=== PATIENT | female | born 1995 | race Caucasian/White ===

== ENCOUNTER 2016-06-04 14:38 | Emergency (ER) | payer OTHER ==
[2016-06-04 14:49] VITALS: BP 99/69
--- NOTE | 2016-06-04 15:08 | ED ---
Throat Pain/Nasal Congestion - HPI Summary HPI Summary: 21yo c/o swollen lymph nodes in her neck, sore throat, headache that started yesterday. Symptoms got worse about 3 hours ago with increased swelling. Change in voice, like a hot potato voice. No fever, but feels chilled. Sister with similar symptoms. Increased fatigue. No abdominal pain but some GI upset. No current vomiting or diarrhea. Taking fluids in without difficulty. Recently diagnosed with Fe def anemia and started on iron. LMP May 21 has IUD and no intercourse. Vaccines are up to date. - History of Current Complaint Chief Complaint: EDThroatPain - Allergies/Home Medications Allergies/Adverse Reactions: Allergies Allergy/AdvReac Type Severity Reaction Status Date / Time Hydrocodone [From Vicodin] Allergy GI Upset Verified 07/04/15 03:58 PMH/Surg Hx/FS Hx/Imm Hx Endocrine/Hematology History: Reports: Hx Anemia Denies: Hx Diabetes, Hx Thyroid Disease Cardiovascular History: Denies: Hx Hypertension Respiratory History: Denies: Hx Asthma, Hx Chronic Obstructive Pulmonary Disease (COPD) GI History: Denies: Hx Ulcer Psychiatric History: Reports: Hx Anxiety, Hx Depression, Hx Post Traumatic Stress Disorder, Hx Community Mental Health Tx Denies: Hx Attention Deficit Hyperactivity Disorder, Hx Eating Disorder, Hx Panic Disorder, Hx Inpatient Treatment, Hx Schizophrenia, Hx Bipolar Disorder, Hx Suicide Attempt, Hx of Violent Episodes Against Others, Hx Substance Abuse, Other Psychiatric Issues/Disorders Infectious Disease History: No Infectious Disease History: Denies: Hx Hepatitis, Hx Human Immunodeficiency Virus (HIV), Traveled Outside the [place] in Last 30 Days - Family History Known Family History: Positive: Diabetes - mother, Other - hypothyroidism mother , depression in family - Social History Occupation: Student - [employer] Lives: Alone - with a room mate Alcohol Use: Rare Hx Substance Use: Yes Substance Use Type: Reports: Marijuana Hx Tobacco Use: No Smoking Status (MU): Never Smoked Tobacco Review of Systems Positive: Fatigue Positive: Sore Throat Positive: Headache All Other Systems Reviewed And Are Negative: Yes Physical Exam - Summary Physical Exam Summary: GENERAL: Well appearing, No acute distress, well nourished. Slightly muffled voice but improves with clearing. HEENT: Head atraumatic/normocephalic, EOMI/YONI, conjunctiva clear, TMs appear without erythema/bulging, Nose appears without congestion or drainage, Throat uvula midline without exudates or tonsillar edema, but does have some erythema. No trismus. Tongue appears normal. Parotids non tender. NECK: Supple with normal range of motion during conversation. +anterior cervical lymphadenopathy. CARDIAC: RRR without murmur, rub or gallop LUNGS: Clear to auscultation without wheezing, rales or rhonchi. Normal respiratory effort. Breath sounds are symmetrical and equal. ABDOMEN: Abdomen is soft and non-tender. No organomegaly. MUSCULOSKELETAL: Moves all extremities well. There is no peripheral edema. SKIN: Warm and dry, skin color reflects adequate perfusion. NEUROLOGICAL: Patient is alert and appropriate. Cranial nerves are grossly intact. PSYCHIATRIC: Appropriate affect. Vital Signs On Initial Exam: Initial Vitals Temp Pulse Resp BP Pulse Ox 98.8 F 62 15 99/69 100 06/04/16 14:41 06/04/16 14:41 06/04/16 14:41 06/04/16 14:41 06/04/16 14:41 Diagnostics - Vital Signs Vital Signs Temp Pulse Resp BP Pulse Ox 06/04/16 14:41 98.8 F 62 15 99/69 100 - Laboratory Lab Statement: Any lab studies that have been ordered have been reviewed, and results considered in the medical decision making process. EENT Course/Dx - Course Assessment/Plan: 21yo female presents with sore throat, change in voice, headache that started yesterday. She had exposure to her sick sister whose symptoms resolved without treatment. She has not tried any medication. She is immunized. Rapid strep was negative. Pending labs including mono spot. Signed out to Tanya at 1630 pending labs. - Diagnoses Provider Diagnoses: Sore throat - Provider Notifications Discussed Care of Patient with: Tanya Discharge - Discharge Plan Condition: Stable Disposition: OTHER Discharge Disposition Comment: signed out to Faustino Vera [id number]
[2016-06-04] MEDS ORDERED: Ibuprofen TAB* 600 MG PO ONE (15:24)
--- NOTE | 2016-06-04 16:42 | PN ---
Progress Note - Progress Note Note: 21 F presents with sore throat. Signed out by Yazmin LEON pending labs. Revaluation at 16:56 patient pain is improved with ibuprofen, did not notice a hot potato voice at time and handle secretions well, labs are currently being drawn Discussed results with patient, sore throat is currently a 2/10 with ibuprofen, has slight WBC count which is expected, able to eat and drink okay, explained warning signs to look for to return such as inability to swallow, increase swelling of neck, difficult speaking or handle secretions, or inability to open mouth all the way to return immediately Will treat symptomatically, patient agrees with plan Diagnosis: sore throat Condition: good Disposition: home
[2016-06-04 17:57] LABS: Hematocrit 39 % (35-47); Hemoglobin 11.9 g/dl (12.0-16.0); Mean Corpuscular HGB Conc 31 g/dl (31-36); Mean Corpuscular Hemoglobin 22 pg (27-31); Mean Platelet Volume 7 um3 (7.4-10.4); Red Blood Count 5.37 10^6/ul (4.0-5.4); Red Cell Distribution Width 17 % (10.5-15); White Blood Count 12.9 10^3/ul (3.5-10.8)
[2016-06-04 18:05] LABS: Comments Flag Yes
[2016-06-04 18:06] LABS: Mean Corpuscular Volume 72 fL (80-97)
[2016-06-04 18:10] LABS: Albumin 4.8 g/dL (3.2-5.2); BUN/Creatinine Ratio 8.8 (8-20); Calcium 9.6 mg/dL (8.6-10.3); EGFR African American 140.5 (>60); EGFR Non-African American 109.2 (>60); Potassium 3.5 mmol/L (3.5-5.0); Total Bilirubin 0.3 mg/dL (0.2-1.0); Total Protein 7.8 g/dL (6.4-8.9)
[2016-06-04 18:22] LABS: Manual Entry Verification MD; Mono Internal Control QC Line Present
== END 2016-06-04 19:13 | disposition home or self-care (01) ==
LOC: ED 14:38
DX: J02.9 Acute pharyngitis, unspecified (principal); Z88.5 Allergy status to narcotic agent
CPT/HCPCS: 36415; 80053; 85025; 86308; 87651; 99281; A9270-GY